=== PATIENT | female | born 2000 | race Caucasian/White ===

== ENCOUNTER 2022-12-25 09:48 | Emergency (ER) | payer OTHER, SELFPAY ==
[2022-12-25 10:01] VITALS: BP 122/86; PULSE 89; RESP 14; TEMP 36.3; O2SAT 98; BMI 22.9
--- NOTE | 2022-12-25 11:46 | ED.GENADULT ---
HPI - General Adult General Date Seen: 12/25/22 Chief complaint: Chest Pain Stated complaint: Chest pain Time Seen by Provider: 12/25/22 10:17 Source: patient Mode of arrival: ambulatory Limitations: no limitations History of Present Illness HPI narrative: Patient is a 22-year-old young woman who presents for evaluation of pleuritic chest pain on the right for the past 3 days. Pain is sharp and located just at the lower edge of the rib cage. She says she is not able to take a deep breath although she does not otherwise feel short of breath. She does note that she has had this before but it has never been this severe or lasted this long. She tried couple of doses of Aleve yesterday and says that that did not help. She has had a cold for the past week, has not had fevers or significant cough. No lower extremity swelling or pain. Does not take oral contraceptives. Denies suspicion of and denies any prior sexual activity. She does not smoke or vape. She has a history of a coronary artery anomaly and is scheduled to have surgery later this year. 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 No change in those symptoms. She has not had significant right upper quadrant pain, vomiting. Related Data Allergies Allergy/AdvReac Type Severity Reaction Status Date / Time adhesive Allergy Rash Verified 12/25/22 10:06 Iodinated Contrast Media Allergy hives Verified 12/25/22 10:06 Review of Systems Status of ROS: Reports: 10 or more systems reviewed and unremarkable except as noted in History and below [facility] Social History Smoking Status: Never smoker How often do you have a drink containing alcohol: monthly or less AUDIT-C Alcohol total score: 1 Non-prescribed substance use: marijuana (any form) Exam Narrative: Exam Narrative: Vital signs as noted above. In general, an alert, well-appearing patient. Nontoxic, breathing easily. Head: Normocephalic, atraumatic. Eyes: Pupils are equal reactive. Extraocular movements are full. Conjunctivae are normal. ENT: Mucous membranes are moist. Throat is normal. Neck: Supple without lymphadenopathy. Heart: Regular rate and rhythm. No murmur or rub. Lungs: Clear bilaterally. No increased work of breathing, crackles or wheezes. Abdomen: Soft and nontender. Negative Alvares sign. No organomegaly. Extremities: Well perfused. No edema. No calf tenderness. Pulses intact. Neurologic: Patient is alert and oriented to person and place. Speech is fluent. Face is symmetric. Moves all extremities equally. Affect: Normal. Skin: Warm and dry. Well perfused. Const: Vital Signs, click to edit/add: Vital Signs - 24 hr 12/25/22 10:01 12/25/22 13:01 Temperature 97.3 F L Pulse Rate [Left P ulse Oximeter] 89 49 L Respiratory Rate 14 18 Blood Pressure [Ri ght Upper Arm] 122/86 Pulse Oximetry 98 97 Oxygen Delivery Me thod Room Air Room Air Documenting provider has reviewed patient's vital signs: yes Course Course Hospital Course: Patient presents with pleurisy, normal vital signs, ongoing symptoms for several days. I did do an EKG which shows normal sinus rhythm, she has a Q-wave in V2, otherwise EKG is normal. We do not have a previous EKG available for comparison but she tells me that her EKG is always ?abnormal secondary to her POTS disease. I do not see any evidence of pericarditis such as ST elevation or PA depression. She also tells me that she has had this chest pain evaluated multiple times in the past and they have never been able to find a cause. For today I did do a troponin which was less than 0.01, a D-dimer which was 0.3, CBC which showed a normal white blood cell count, hemoglobin, platelets. Electrolytes normal, LFTs show very minimal elevated shins in transaminases at 45 and 49, but normal bili and normal alk-phos. She does not have any abdominal pain or tenderness I do not think this is likely related to hepatitis, cholecystitis, biliary colic. Lipase was normal. CRP is normal. COVID was negative. Chest x-ray pending. I have talked to her about all these results, she had Toradol here with some improvement although she still has pain. I have recommended a combination of ibuprofen and Tylenol at home, discussed the diagnosis of pleurisy. In the absence of significant risk factors, hypoxia, tachycardia, or other worrisome signs, I do not think she needs CT of the chest today. Anticipate that this will resolve with nonsteroidals and time, but if she is worsening, has new symptoms such as fever, shortness of breath, vomiting etcetera she should return for re-evaluation. Otherwise, primary care follow-up if not improving over the next week or so. Vital Signs Vital signs: Initial Vital Signs Temperature 97.3 F L 12/25/22 10:01 Temperature Source Temporal Artery Scan 12/25/22 10:01 Pulse Rate 89 12/25/22 10:01 Respiratory Rate 14 12/25/22 10:01 Blood Pressure 122/86 12/25/22 10:01 Blood Pressure Mean 98 12/25/22 10:01 Blood Pressure Position Sitting 12/25/22 10:01 Pulse Oximetry 98 12/25/22 10:01 Oxygen Delivery Method Room Air 12/25/22 10:01 Vital Signs Temperature 97.3 F L 12/25/22 10:01 Pulse Rate 89 12/25/22 10:01 Respiratory Rate 14 12/25/22 10:01 Blood Pressure 122/86 12/25/22 10:01 Pulse Oximetry 98 12/25/22 10:01 Oxygen Delivery Method Room Air 12/25/22 10:01 Temperature 97.3 F L 12/25/22 10:01 Pulse Rate 49 L 12/25/22 13:01 Respiratory Rate 18 12/25/22 13:01 Blood Pressure 122/86 12/25/22 10:01 Pulse Oximetry 97 12/25/22 13:01 Oxygen Delivery Method Room Air 12/25/22 13:01 Medical Decision Making Lab Data Labs: Lab Results 12/25/22 12/25/22 12/25/22 Range/Units 11:10 11:36 11:46 WBC 7.32 (4.50-11.00) K/uL RBC 4.17 (4.00-5.20) m/uL Hgb 12.8 (12.0-16.0) gm/dL Hct 37.7 (33.0-51.0) % MCV 90 (80-100) fL MCH 31 (26-34) pg MCHC 34 (32-36) gm/dL RDW Coeff of Mary 11.7 (11.5-15.5) % Plt Count 234 (140-440) K/uL Neut % (Auto) 63.9 (42.0-72.0) % Lymph % (Auto) 26.4 (20-44) % [place] % (Auto) 8.7 (0.0-11.0) % Eos % (Auto) 0.8 (0.0-7.0) % Baso % (Auto) 0.1 (0.0-3.0) % Neut # (Auto) 4.67 (1.7-7.0) K/uL Lymph # (Auto) 1.93 (0.90-2.90) K/uL [place] # (Auto) 0.60 (0.00-0.90) K/UL Eos # (Auto) 0.06 (0.00-0.50) K/uL Baso # (Auto) 0.01 (0.00-0.30) K/uL D-Dimer Quant (PE/DVT) 0.38 (0.00-0.50) ug/ml Sodium 137 (135-149) mmol/L Potassium 4.0 (3.6-5.1) mmol/L Chloride 105 (96-114) mmol/L Carbon Dioxide 26 (20-32) mmol/L BUN 17 (5-24) mg/dL Creatinine 0.5 (0.5-1.5) mg/dL Estimated Creat Clear 195.59 Estimated GFR 135 ml/min Glucose 90 (60-115) mg/dL Calcium 8.9 (8.4-10.6) mg/dL Total Bilirubin 1.5 (0.1-1.5) mg/dL Direct Bilirubin 0.0 (0.0-0.5) mg/dL AST 45 H (12-35) U/L ALT 49 H (4-35) U/L Alkaline Phosphatase 52 (40-150) U/L Troponin I < 0.01 L (0.01-0.04) ng/mL C-Reactive Protein 0.9 (0.5-1.0) mg/dL Total Protein 7.5 (6.0-8.3) g/dL Albumin 4.4 (3.3-5.0) g/dL Lipase 45 (23-300) U/L SARS-CoV-2 (PCR) Negative SARS-CoV-2 (Negative) Discharge Plan Discharge Clinical Impression: Pleurisy Patient Disposition: Home, Self-Care Condition: Stable Instructions: Pleurisy (DC) Additional Instructions: Your chest x-ray looks normal today, all labs are normal as well. No evidence of blood clot, heart attack, collapsed lung, pneumonia, or other acute findings. I would recommend using ibuprofen 400 mg plus Tylenol 1000 mg 3 times a day over the next few days. If you have acute worsening, significant shortness of breath, fever, etcetera, return to the ER. Otherwise, follow-up with your clinic if not improving over the next week or so. Follow Up/Referrals: Provider,Not a Local [Primary Care Provider] - Stand Alone Forms: [employer] Info Instructions
[2022-12-25] MEDS: KETOROLAC 15 MG/ML inj IVP (11:50)
[2022-12-25 12:12] LABS: Basophils Absolute Auto 0.01 K/uL (0.00-0.30); Basophils Percent Auto 0.1 % (0.0-3.0); Eosinophils Absolute Auto 0.06 K/uL (0.00-0.50); Eosinophils Percent Auto 0.8 % (0.0-7.0); Hematocrit 37.7 % (33.0-51.0); Hemoglobin* 12.8 gm/dL (12.0-16.0); Immature Granulocytes Abs Auto 0.01 K/uL (0.00-0.30); Immature Granulocytes Pct Auto 0.1 %; Lymphocytes Absolute Auto 1.93 K/uL (0.90-2.90); Lymphocytes Percent Auto 26.4 % (20-44); Mean Corpuscular HGB Conc 34 gm/dL (32-36); Mean Corpuscular Hemoglobin 31 pg (26-34); Mean Corpuscular Volume 90 fL (80-100); Monocytes Percent Auto 8.7 % (0.0-11.0); Neutrophils Absolute Auto 4.67 K/uL (1.7-7.0); Neutrophils Percent Auto 63.9 % (42.0-72.0); Platelet Count* 234 K/uL (140-440); RDW Coefficient of Variation % 11.7 % (11.5-15.5); Red Blood Count 4.17 m/uL (4.00-5.20); White Blood Count* 7.32 K/uL (4.50-11.00)
[2022-12-25 12:13] LABS: Albumin* 4.4 g/dL (3.3-5.0)
[2022-12-25 12:14] LABS: Chloride* 105 mmol/L (96-114); Slide Review Reflex No; Sodium* 137 mmol/L (135-149)
[2022-12-25 12:16] LABS: Bilirubin Total* 1.5 mg/dL (0.1-1.5); Carbon Dioxide* 26 mmol/L (20-32); Creatinine* 0.5 mg/dL (0.5-1.5); Est. Creatinine Clearance* 195.59; Estimated Glomerular Filt Rate 135 ml/min; Total Protein* 7.5 g/dL (6.0-8.3)
[2022-12-25 12:17] LABS: Alanine Aminotransferase* 49 U/L (4-35); Alkaline Phosphatase* 52 U/L (40-150); Aspartate Amino Transferase* 45 U/L (12-35); Blood Urea Nitrogen* 17 mg/dL (5-24); Calcium* 8.9 mg/dL (8.4-10.6); Glucose* 90 mg/dL (60-115); Lipase* 45 U/L (23-300)
[2022-12-25 12:29] LABS: C Reactive Protein* 0.9 mg/dL (0.5-1.0)
[2022-12-25 12:31] LABS: SARS PCR* Negative SARS-CoV-2 (Negative)
[2022-12-25 13:01] VITALS: PULSE 49; RESP 18; O2SAT 97
[2022-12-25 13:08] LABS: Troponin I* < 0.01 ng/mL (0.01-0.04)
[2022-12-25 13:27] LABS: D Dimer Quantitative* 0.38 ug/ml (0.00-0.50)
--- NOTE | 2022-12-25 13:37 | CRLHL7_ITS ---
For Patients: As a result of the Century Cures Act, medical imaging exams and procedure reports are released immediately into your electronic medical record. You may view this report before your referring provider. If you have questions, please contact your health care provider. INDICATION: Right-sided chest pain. Pain underneath the right breast. TECHNIQUE : PA and lateral chest x-ray. FINDINGS: Clear lungs. Normal heart size and pulmonary vascularity. Normal included skeleton. IMPRESSION: Negative chest. Dictated by Junaid Burgess MD @ 12/25/2022 2:36:44 PM (Electronically Signed)
== END 2022-12-25 14:25 | disposition home or self-care (01) ==
PROVIDERS: Emergency Provider Emergency Medicine
DX: R09.1 Pleurisy (principal)
CPT/HCPCS: 36415; 71046; 80048; 80076; 83690; 84484; 85025; 85379; 86140; 87635; 93005; 96374; 99284; J1885